=== PATIENT | male | born 1980 | race Caucasian/White ===

== ENCOUNTER 2017-03-07 12:40 | Emergency (ER) | payer OTHER ==
[~2017-03-07] VITALS: Ht 167.6 cm; Wt 65.0 kg
[2017-03-07 12:42] VITALS: BP 146/64; PULSE 88; RESP 13; TEMP 98.5; O2SAT 98
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
[2017-03-07] MEDS ORDERED: MOBI15TA PO (14:09)
[2017-03-07] MEDS ORDERED: ROBA750T PO (14:09)
[2017-03-07] MEDS ORDERED: IBUPROFEN 600 MG TAB PO ONE (14:15)
== END 2017-03-07 14:57 | disposition home or self-care (01) ==
LOC: NEPD 12:40
DX: S16.1XXA Strain of muscle, fascia and tendon at neck level, initial encounter (principal); M54.12 Radiculopathy, cervical region; V89.2XXA Person injured in unspecified motor-vehicle accident, traffic, initial encounter
CPT/HCPCS: 72040; 99284

== ENCOUNTER 2017-07-18 00:21 | Emergency (ER) | payer SELFPAY ==
[~2017-07-18] VITALS: Ht 170.2 cm; Wt 75.0 kg
[~2017-07-18 00:21] MED LIST: MOBI15TA PO; ROBA750T PO
[2017-07-18 00:32] VITALS: BP 178/83; PULSE 82; RESP 16; TEMP 97.3; O2SAT 98
[2017-07-18 01:48] VITALS: O2SAT 100
--- NOTE | 2017-07-18 03:11 | PD ---
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 Said he had nausea and vomiting and after vomiting , had some abdominal discomfort. Pain is worst after vomiting. Associated with photophobia. Had childhood history of migraine headaches. Denies any fever, neck pain, chest pain, sob, focal weakness or numbness or visual changes. PFSH Past Medical History Cancer: Yes Diminished Hearing: No Tetanus Vaccination: Unknown Influenza Vaccination: No Past Surgical History Surgical History: No Previous Surgery Social History Alcohol Use: No Tobacco Use: No Substance Use: No Allergies-Medications (Allergen,Severity, Reaction): Coded Allergies: No Known Allergies (Unverified Adverse Reaction, Unknown, 07/18/17) Reported Meds & Prescriptions Reported Meds & Active Scripts Active No Active Prescriptions or Reported Medications Review of Systems Except as stated in HPI: all other systems reviewed are Neg Physical Exam Narrative GENERAL: 37yo M in moderate distress. SKIN: Focused skin assessment warm/dry. HEAD: Atraumatic. Normocephalic. EYES: Pupils equal and round at 3mm bilaterally. EOMI. ENT: No nasal bleeding or discharge. Mucous membranes pink and moist. NECK: No nuchal rigidity. CARDIOVASCULAR: Regular rate and rhythm. No murmur appreciated. RESPIRATORY: No accessory muscle use. Clear to auscultation. Breath sounds equal bilaterally. GASTROINTESTINAL: Abdomen soft, non-tender, nondistended. No rebound tenderness or guarding. MUSCULOSKELETAL: No obvious deformities. No clubbing. No cyanosis. No edema. NEUROLOGICAL: Awake and alert. No obvious cranial nerve deficits. Motor grossly within normal limits in all extremities. Sensation intact. Normal speech. Data Data Last Documented VS Vital Signs Date Time Temp Pulse Resp B/P (MAP) Pulse Ox O2 Delivery O2 Flow Rate FiO2 07/18/17 06:13 81 18 135/86 (102) 100 07/18/17 01:48 Room Air 07/18/17 00:32 97.3 Orders Orders Complete Blood Count With Diff (07/18/17 01:43) Comprehensive Metabolic Panel (07/18/17 01:43) Prothrombin Time / Inr (Pt) (07/18/17 01:43) Act Partial Throm Time (Ptt) (07/18/17 01:43) Ecg Monitoring (07/18/17 01:43) Iv Access Insert/Monitor (07/18/17 01:43) Oximetry (07/18/17 01:43) Ct Brain W/O Iv Contrast(Rout) (07/18/17 ) Lipase (07/18/17 03:07) Metoclopramide Inj (Reglan Inj) (07/18/17 05:00) Ketorolac Inj (Toradol Inj) (07/18/17 05:00) Ondansetron Inj (Zofran Inj) (07/18/17 05:15) Lactulose Liq (Lactulose Liq) (07/18/17 06:00) Prochlorperazine Inj (Compazine Inj) (07/18/17 06:00) Labs Laboratory Tests Test 07/18/17 01:48 White Blood Count 11.1 TH/MM3 Red Blood Count 5.46 MIL/MM3 Hemoglobin 15.8 GM/DL Hematocrit 45.9 % Mean Corpuscular Volume 84.2 FL Mean Corpuscular Hemoglobin 29.0 PG Mean Corpuscular Hemoglobin Concent 34.4 % Red Cell Distribution Width 13.3 % Platelet Count 203 TH/MM3 Mean Platelet Volume 6.9 FL Neutrophils (%) (Auto) 72.5 % Lymphocytes (%) (Auto) 18.7 % Monocytes (%) (Auto) 7.7 % Eosinophils (%) (Auto) 0.8 % Basophils (%) (Auto) 0.3 % Neutrophils # (Auto) 8.1 TH/MM3 Lymphocytes # (Auto) 2.1 TH/MM3 Monocytes # (Auto) 0.9 TH/MM3 Eosinophils # (Auto) 0.1 TH/MM3 Basophils # (Auto) 0.0 TH/MM3 CBC Comment DIFF FINAL Differential Comment Prothrombin Time 10.4 SEC Prothromb Time International Ratio 1.0 RATIO Activated Partial Thromboplast Time 26.9 SEC Blood Urea Nitrogen 13 MG/DL Creatinine 0.75 MG/DL Random Glucose 91 MG/DL Total Protein 6.6 GM/DL Albumin 3.7 GM/DL Calcium Level 8.7 MG/DL Alkaline Phosphatase 60 U/L Aspartate Amino Transf (AST/SGOT) 16 U/L Alanine Aminotransferase (ALT/SGPT) 30 U/L Total Bilirubin 0.4 MG/DL Sodium Level 140 MEQ/L Potassium Level 3.9 MEQ/L Chloride Level 105 MEQ/L Carbon Dioxide Level 28.6 MEQ/L Anion Gap 6 MEQ/L Estimat Glomerular Filtration Rate 116 ML/MIN Lipase 121 U/L [facility] Medical Decision Making Medical Screen Exam Complete: Yes Emergency Medical Condition: Yes Differential Diagnosis Migraine headache vs. sinus headache vs. tension headache vs. SAH Narrative Course 37yo M with headache and vomiting that started about 3 hours prior to my evaluation. CT brain obtain since he said it doesnt feel like his migraine and it was sudden onset. CT brain showed no acute intracranial abnormality and it was within six hours since onset of headache so should be 100% sensitive for SAH. Labs reviewed, WBC 11.1. H/H normal. Lipase normal. CMP unremarkable. Pt given NS IVF, zofran and toradol. Said headache has improved a lot but still has some so compazine given. Lactulose was mistakenly ordered but cancelled before it was given. Pt reevaluated after compazine and said his headache completely resolved. Pt wants to go home. Return precautions given. Diagnosis Primary Impression: Migraine headache Qualified Codes: G43.909 - Migraine, unspecified, not intractable, without status migrainosus Patient Instructions: General Instructions Departure Forms: Tests/Procedures Additional Instructions: Please follow up with your primary care physician in 2-3 days. Return to the ED if symptoms worsen. Med/Other Pt SpecificInfo: Prescription(s) given Scripts Ibuprofen (Ibuprofen) 600 Mg Tab 600 MG PO Q8HR Y for PAIN, #20 TAB 0 Refills Prov: Millicent López 07/18/17 Disposition: 01 DISCHARGE HOME Condition: Stable LópezMillicent weinberg Jul 18, 2017 03:11
[2017-07-18 03:35] LABS: AUTOMATED NEUTROPHIL # 8.1 TH/MM3 (1.8-7.7); BASOPHIL % 0.3 % (0.0-2.0); EOSINOPHIL # 0.1 TH/MM3 (0-0.4); EOSINOPHIL % 0.8 % (0.0-4.0); HEMATOCRIT 45.9 % (39.0-51.0); HEMOGLOBIN 15.8 GM/DL (13.0-17.0); LYMPH % 18.7 % (9.0-44.0); LYMPHOCYTE # 2.1 TH/MM3 (1.0-4.8); MEAN CELL VOLUME 84.2 FL (80.0-100.0); MEAN CORPUSCULAR HGB CONC 34.4 % (32.0-36.0); MEAN PLATELET VOLUME 6.9 FL (7.0-11.0); MONO % 7.7 % (0.0-8.0); MONOCYTE # 0.9 TH/MM3 (0-0.9); NEUT % 72.5 % (16.0-70.0); PLATELET COUNT 203 TH/MM3 (150-450); RED BLOOD COUNT 5.46 MIL/MM3 (4.50-5.90); RED CELL DISTRIBUTION WIDTH 13.3 % (11.6-17.2); WHITE BLOOD COUNT 11.1 TH/MM3 (4.0-11.0)
--- NOTE | 2017-07-18 03:35 | RADRPT ---
EXAM DATE/TIME: 07/18/2017 03:23 [facility] COMPARISON: No previous studies available for comparison. INDICATIONS : Headaches. RADIATION DOSE: 35.71 CTDIvol (mGy) MEDICAL HISTORY : Carcinoma, lung. SURGICAL HISTORY : None. ENCOUNTER: Initial ACUITY: 1 day PAIN SCALE: 10/10 LOCATION: Bilateral cranial TECHNIQUE: Multiple contiguous axial images were obtained of the head. Using automated exposure control and adj ustment of the mA and/or kV according to patient size, radiation dose was kept as low as reasonably a chievable to obtain optimal diagnostic quality images. DICOM format image data is available electro nically for review and comparison. FINDINGS: CEREBRUM: The ventricles are normal for age. No evidence of midline shift, mass lesion, hemorrhage or acute in farction. No extra-axial fluid collections are seen. POSTERIOR FOSSA: The cerebellum and brainstem are intact. The 4th ventricle is midline. The cerebellopontine angle i s unremarkable. EXTRACRANIAL: The visualized portion of the orbits is intact. Visualized paranasal sinuses and mastoid air cells ar e clear. Patient has leftward convex bowing of the nasal septum. SKULL: The calvaria is intact. No evidence of skull fracture. CONCLUSION: No acute intracranial abnormality. Deviated septum. Merrick Fontenot MD on July 18, 2017 at 3:32 Board Certified Radiologist. This report was verified electronically.
[2017-07-18 04:02] LABS: PROTHROMBIN TIME - PATIENT 10.4 SEC (9.8-11.6)
[2017-07-18 04:07] LABS: ALBUMIN 3.7 GM/DL (3.4-5.0); ALT (GPT) 30 U/L (12-78); AST (GOT) 16 U/L (15-37); BICARBONATE 28.6 MEQ/L (21.0-32.0); BLOOD UREA NITROGEN 13 MG/DL (7-18); CALCIUM 8.7 MG/DL (8.5-10.1); CHLORIDE 105 MEQ/L (98-107); CREATININE 0.75 MG/DL (0.60-1.30); GLOMERULAR FILTRATION RATE 116 ML/MIN (>89); GLUCOSE,RANDOM 91 MG/DL (74-106); SODIUM (NA) 140 MEQ/L (136-145)
[2017-07-18 04:09] LABS: ALKALINE PHOSPHATASE 60 U/L (45-117); TOTAL BILIRUBIN ADULT 0.4 MG/DL (0.2-1.0); TOTAL PROTEIN 6.6 GM/DL (6.4-8.2)
[2017-07-18] MEDS ORDERED: KETOROLAC TROMETHAMINE 30 MG/ML (IVP) VIAL IV PUSH ONE (05:00)
[2017-07-18] MEDS ORDERED: METOCLOPRAMIDE HCL 10 MG/2 ML VIAL IV PUSH ONE (05:00)
[2017-07-18] MEDS ORDERED: ONDANSETRON HCL 4 MG/2 ML VIAL IV PUSH ONE (05:15)
[2017-07-18] MEDS ORDERED: LACTULOSE SYRUP 20 GM/30 ML CUP PO ONE (06:00)
[2017-07-18] MEDS ORDERED: PROCHLORPERAZINE INJ 10 MG/2 ML VIAL IV PUSH ONE (06:00)
[2017-07-18 06:13] VITALS: BP 135/86; PULSE 81; RESP 18; O2SAT 100
[2017-07-18] MEDS ORDERED: IBUP-232 PO (06:24)
== END 2017-07-18 06:43 | disposition home or self-care (01) ==
LOC: NEPC 00:21
DX: G43.909 Migraine, unspecified, not intractable, without status migrainosus (principal); R10.9 Unspecified abdominal pain
CPT/HCPCS: 70450; 80053; 83690; 85025; 85610; 85730; 96374; 96375; 99284; J0780; J1885; J2405